=== PATIENT | male | born 1990 | race African-American/Black ===

== ENCOUNTER 2019-04-26 08:24 | Emergency (ER) | payer MEDICAID ==
[~2019-04-26] VITALS: Ht 185.4 cm; Wt 59.9 kg
[2019-04-26 08:31] VITALS: BP 116/65
[2019-04-26] MEDS: KETOROLAC 15 MG/ML VIAL IM ONE (10:10)
[2019-04-26 10:27] VITALS: BP 116/65
== END 2019-04-26 10:27 | disposition home or self-care (01) ==
LOC: MED 08:24
DX: S69.91XA Unspecified injury of right wrist, hand and finger(s), initial encounter (principal); M79.89 Other specified soft tissue disorders; W22.8XXA Striking against or struck by other objects, initial encounter; Y93.89 Activity, other specified; Y92.89 Other specified places as the place of occurrence of the external cause; Y99.8 Other external cause status
CPT/HCPCS: 29125; 73130; 96372; 99283; J1885; Q0092